=== PATIENT | female | born 1930 ===

== ENCOUNTER 2017-04-19 06:22 | Day surgery (SDC) | payer MEDICARE, MEDICAID ==
[2017-04-19 06:29] VITALS: BMI 24.0
[2017-04-19 07:07] VITALS: TEMP 98.4
[2017-04-19] MEDS ORDERED: Lidocaine 2% Inj (20ml) ONE (08:30)
[2017-04-19] MEDS ORDERED: Etomidate 20 mg/10ml Inj IV ONE (08:30)
[2017-04-19] MEDS ORDERED: Propofol 10 mg/ml Inj (20 ML) ONE (08:30)
[2017-04-19] MEDS ORDERED: Sodium Chloride 0.9% 1,000 ML IV SCH (09:00)
[2017-04-19 09:07] VITALS: O2SAT 100
[2017-04-19 09:48] VITALS: BP 146/72; PULSE 109; RESP 22
== END 2017-04-19 10:21 | disposition home or self-care (01) ==
LOC: ENDO 06:22
PROVIDERS: ATTEND Internal Medicine
DX: K29.50 Unspecified chronic gastritis without bleeding (principal); K22.9 Disease of esophagus, unspecified; K44.9 Diaphragmatic hernia without obstruction or gangrene; K31.89 Other diseases of stomach and duodenum; Z94.7 Corneal transplant status; I10 Essential (primary) hypertension; H40.9 Unspecified glaucoma; D64.9 Anemia, unspecified
CPT/HCPCS: 43239; 88305; 88342; J2704; J3010; J7040 ×2